=== PATIENT | male | born 2000 | race Caucasian/White ===

== ENCOUNTER 2020-11-06 10:54 | Emergency (ER) | payer SELFPAY ==
[2020-11-06 11:04] VITALS: BP 134/72
--- NOTE | 2020-11-07 19:15 | ED Physician Documentation ---
History of Present Illness - Stated complaint Stated Complaint: FB EAR - Chief complaint Chief Complaint: Heent - History obtained from History obtained from: Patient - Additonal information Additional information: 20-year-old man with no past medical history presents with left ear fullness and inability to hear. He states that yesterday he was cleaning it with a paper towel and a Q-tip and thinks that a piece of cotton was dislodged into the ear. Denies pain or discharge. Denies fever or other symptoms. Review of Systems Constitutional: denies: Fever Ears: reports: Loss of hearing. denies: Ear pain Skin: reports: Other (no swelling or erythema) PD PAST MEDICAL HISTORY - Past Medical History Past Medical History: No - Past Surgical History Past Surgical History: Yes - Present Medications Home Medications: Ambulatory Orders Medication Instructions Recorded Confirmed Carbamide Peroxide Otic Drop 10 drops OT ONCE 4 Days #1 bottle 11/06/20 [Debrox Otic Drops] - Allergies Allergies/Adverse Reactions: Allergies Allergy/AdvReac Type Severity Reaction Status Date / Time No Known Drug Allergies Allergy Verified 11/06/20 11:04 - Social History Does the pt smoke?: Yes Smoking Status: Current every day smoker Does the pt drink ETOH?: No Does the pt have substance abuse?: No - Immunizations Immunizations are current?: Yes - POLST Patient has POLST: No PD ED PE NORMAL - Vitals Vital signs reviewed: Yes - General General: Alert and oriented X 3 - HEENT HEENT: Atraumatic, PERRL, EOMI, Ears normal (L ear with impacted cerumen. R TM clear) - Neuro Neuro: Alert and oriented X 3 - Psych Psych: Normal mood, Normal affect Results - Vitals Vitals: Oxygen O2 Source Room air PD MEDICAL DECISION MAKING - ED course ED course: 20-year-old man with impacted cerumen. Debrox prescribed. Return precautions given. Education given about avoiding Q-tips in the ears. Departure - Departure Disposition: 01 Home, Self Care Clinical Impression: Cerumen impaction Condition: Good Instructions: Earwax Impacted Prescriptions: Carbamide Peroxide Otic Drop [Debrox Otic Drops] 10 drops OT ONCE 4 Days #1 bottle Comments: He was seen in the emergency department for cerumen impaction. Do not use Q- tips to clean your ears. Do not insert anything into your ears. Use Debrox that I prescribed to loosen the earwax. Return to the ED if you have any new or worsening symptoms. If you develop hearing loss again then call your primary doctor to have the wax removed. Discharge Date/Time: 11/06/20 12:00
== END 2020-11-06 12:00 | disposition home or self-care (01) ==
LOC: ED 10:54
DX: H61.22 Impacted cerumen, left ear (principal); F17.200 Nicotine dependence, unspecified, uncomplicated
CPT/HCPCS: 99282; 99284